=== PATIENT | female | born 1975 | race Two or more races ===

== ENCOUNTER 2025-11-05 21:47 | Emergency (ER) | payer BC, OTHER ==
[~2025-11-05] VITALS: Ht 160 cm; Wt 90.7 kg
[2025-11-06 00:03] VITALS: BP 152/82; TEMP 98; O2SAT 96
== END 2025-11-06 02:45 | disposition home or self-care (01) ==
LOC: ER 21:49
DX: M18.11 Unilateral primary osteoarthritis of first carpometacarpal joint, right hand (principal); I10 Essential (primary) hypertension; J45.909 Unspecified asthma, uncomplicated
CPT/HCPCS: 73110; 73130-TC